=== PATIENT | female | born 1970 | race Caucasian/White ===

== ENCOUNTER 2017-12-03 11:44 | Emergency (ER) | payer OTHER ==
[~2017-12-03] VITALS: Ht 162.6 cm; Wt 104.5 kg
[~2017-12-03 11:44] MED LIST: Z.0.NO CURRENT MEDS
[2017-12-03 11:46] VITALS: BP_SYST 202; BP_SYST 228; BP_DIAS 105; BP_DIAS 127; PULSE 89; RESP 18; TEMP 97.7; O2SAT 96
--- NOTE | 2017-12-03 11:55 | PD ---
HPI Chief Complaint: Dizziness Time Seen by Provider: 11:47 Travel History International Travel<30 days: No Contact w/Intl Traveler<30days: No Traveled to known affect area: No History of Present Illness HPI This 47-year-old female says that this morning she started feeling dizzy. Her drove her to work. When she got to work her dizziness got worse and she started vomiting. She had repeated bouts of vomiting. She has had vertigo in the past but usually not this severe. She does have a history of hypertension and was on medication at one time but is not on it now. She says her blood pressure came down. She is not complaining of headache. She had gone to physical therapy in the past for maneuvers to reposition her canalith [facility] Past Medical History Hx Anticoagulant Therapy: No Anemia: Yes Cancer: No Chemotherapy: No Cerebrovascular Accident: No Diabetes: No Endocrine: No Musculoskeletal: No Neurologic: No Psychiatric: No Respiratory: No Tetanus Vaccination: < 5 Years Influenza Vaccination: No ?: Not Menopausal: Yes : 5 Para: 3 Miscarriage: 2 : 0 Dilation and Curettage (D&C): Yes Tubal Ligation: Yes Past Surgical History Gynecologic Surgery: Yes (TUBAL LIGATION 2003) Hysterectomy: Yes (PARTIAL) Other Surgery: Yes Social History Alcohol Use: Yes (RARELY) Tobacco Use: No Substance Use: No Allergies-Medications (Allergen,Severity, Reaction): Coded Allergies: No Known Allergies (Verified Adverse Reaction, Unknown, 12/03/17) Reported Meds & Prescriptions Reported Meds & Active Scripts Active No Active Prescriptions or Reported Medications Review of Systems General / Constitutional: No: Fever, Chills Eyes: No: Diploplia, Blurred Vision HENT: Positive: Vertigo Cardiovascular: No: Chest Pain or Discomfort, Palpitations Respiratory: No: Shortness of Breath Gastrointestinal: Positive: Nausea, Vomiting Genitourinary: No: Frequency Musculoskeletal: No: Myalgias Skin: No Rash, No Itching Psychiatric: No: Anxiety Hematologic/Lymphatic: No: Easy Bruising Physical Exam Narrative GENERAL: Well-developed female SKIN: Focused skin assessment warm/dry. HEAD: Atraumatic. Normocephalic. EYES: Pupils equal and round. No scleral icterus. No injection or drainage. ENT: No nasal bleeding or discharge. Mucous membranes pink and moist. TMs are negative NECK: Trachea midline. No JVD. CARDIOVASCULAR: Regular rate and rhythm. No murmur appreciated. RESPIRATORY: No accessory muscle use. Clear to auscultation. Breath sounds equal bilaterally. GASTROINTESTINAL: Abdomen soft, non-tender, nondistended. Hepatic and splenic margins not palpable. MUSCULOSKELETAL: No obvious deformities. No clubbing. No cyanosis. No edema. NEUROLOGICAL: Awake and alert. No obvious cranial nerve deficits. Motor grossly within normal limits. Normal speech. PSYCHIATRIC: Appropriate mood and affect; insight and judgment normal. Data Data Last Documented VS Vital Signs Date Time Temp Pulse Resp B/P (MAP) Pulse Ox O2 Delivery O2 Flow Rate FiO2 12/03/17 12:27 190/104 (132) 12/03/17 11:51 Room Air 12/03/17 11:46 97.7 89 18 96 Orders Orders Complete Blood Count With Diff (12/03/17 11:52) Basic Metabolic Panel (Bmp) (12/03/17 11:52) Urinalysis - C+S If Indicated (12/03/17 11:52) Sodium Chlor 0.9% 1000 Ml Inj (Ns 1000 M (12/03/17 12:00) Ondansetron Inj (Zofran Inj) (12/03/17 12:00) Meclizine (Antivert) (12/03/17 12:00) Labs Laboratory Tests Test 12/03/17 12:15 12/03/17 12:50 White Blood Count 14.0 TH/MM3 Red Blood Count 5.01 MIL/MM3 Hemoglobin 12.7 GM/DL Hematocrit 38.2 % Mean Corpuscular Volume 76.2 FL Mean Corpuscular Hemoglobin 25.4 PG Mean Corpuscular Hemoglobin Concent 33.3 % Red Cell Distribution Width 13.3 % Platelet Count 309 TH/MM3 Mean Platelet Volume 8.3 FL Neutrophils (%) (Auto) 78.5 % Lymphocytes (%) (Auto) 11.7 % Monocytes (%) (Auto) 3.4 % Eosinophils (%) (Auto) 1.5 % Basophils (%) (Auto) 4.9 % Neutrophils # (Auto) 11.0 TH/MM3 Lymphocytes # (Auto) 1.6 TH/MM3 Monocytes # (Auto) 0.5 TH/MM3 Eosinophils # (Auto) 0.2 TH/MM3 Basophils # (Auto) 0.7 TH/MM3 CBC Comment DIFF FINAL Differential Comment Blood Urea Nitrogen 18 MG/DL Creatinine 0.98 MG/DL Random Glucose 126 MG/DL Calcium Level 8.6 MG/DL Sodium Level 136 MEQ/L Potassium Level 3.8 MEQ/L Chloride Level 104 MEQ/L Carbon Dioxide Level 26.1 MEQ/L Anion Gap 6 MEQ/L Estimat Glomerular Filtration Rate 61 ML/MIN MDM Medical Decision Making Medical Screen Exam Complete: Yes Emergency Medical Condition: Yes Medical Record Reviewed: Yes Differential Diagnosis Differential includes vertigo, BPPV Narrative Course Patient has been given Zofran and Antivert with some improvement. Her blood pressure was initially quite high and has come down over a period of time. She has been on medication in the past but not recently. She says she will follow- up with her primary care physician regarding her blood pressure. Her vertigo has subsided somewhat. She will be released with prescriptions for Zofran and Antivert Diagnosis Primary Impression: Acute onset of severe vertigo Scripts Meclizine HCl (Meclizine 25) 25 Mg Tab 1 TAB PO Q6HR for Vertigo, #30 Prov: Torin Del Angel MD 12/03/17 Ondansetron Odt (Zofran Odt) 4 Mg Tab 4 MG SL Q6HR Y for Nausea/Vomiting, #10 TAB 0 Refills Prov: Torin Del Angel MD 12/03/17 Disposition: 01 DISCHARGE HOME Condition: Stable Torin Del Angel MD Dec 03, 2017 11:55
[2017-12-03] MEDS ORDERED: SODIUM CHLOR 0.9% 1000 ML INJ 1,000 ML IV ONE (12:00)
[2017-12-03] MEDS ORDERED: ONDANSETRON HCL 4 MG/2 ML VIAL IV PUSH ONE (12:00)
[2017-12-03] MEDS ORDERED: MECLIZINE HCL 25 MG TAB PO ONE (12:00)
[2017-12-03 12:26] LABS: BASOPHIL # 0.7 TH/MM3 (0-0.2); BASOPHIL % 4.9 % (0.0-2.0); EOSINOPHIL # 0.2 TH/MM3 (0-0.4); EOSINOPHIL % 1.5 % (0.0-4.0); HEMATOCRIT 38.2 % (35.0-46.0); HEMOGLOBIN 12.7 GM/DL (11.6-15.3); LYMPH % 11.7 % (9.0-44.0); LYMPHOCYTE # 1.6 TH/MM3 (1.0-4.8); MEAN CELL VOLUME 76.2 FL (80.0-100.0); MEAN CORPUSCULAR HEMOGLOBIN 25.4 PG (27.0-34.0); MEAN CORPUSCULAR HGB CONC 33.3 % (32.0-36.0); MEAN PLATELET VOLUME 8.3 FL (7.0-11.0); MONO % 3.4 % (0.0-8.0); MONOCYTE # 0.5 TH/MM3 (0-0.9); NEUT % 78.5 % (16.0-70.0); PLATELET COUNT 309 TH/MM3 (150-450); RED BLOOD COUNT 5.01 MIL/MM3 (4.00-5.30); RED CELL DISTRIBUTION WIDTH 13.3 % (11.6-17.2)
[2017-12-03 12:27] VITALS: BP 190/104
[2017-12-03 13:16] LABS: BICARBONATE 26.1 MEQ/L (21.0-32.0); CALCIUM 8.6 MG/DL (8.5-10.1)
[2017-12-03 13:20] LABS: CREATININE 0.98 MG/DL (0.50-1.00)
[2017-12-03] MEDS ORDERED: MECL1TAB42 PO (13:44)
[2017-12-03] MEDS ORDERED: ZOFR4TAB3 SL (13:44)
[2017-12-03 14:53] VITALS: BP 175/99
== END 2017-12-03 14:56 | disposition home or self-care (01) ==
LOC: PHED 11:44
DX: R42 Dizziness and giddiness (principal); I10 Essential (primary) hypertension; D64.9 Anemia, unspecified
CPT/HCPCS: 80048; 85025; 96361; 96374; 99284; J2405; J7030